=== PATIENT | female | born 1980 | race Caucasian/White ===

== ENCOUNTER 2021-02-05 09:31 | Observation (INO) ==
[~2021-02-05 09:31] MED LIST: CLINDAMYCIN IN 0.9 % SOD CHLOR 900 MG/50 ML BAG IV PRN; GENTAMICIN SULFATE 100 MG in DEXTROSE 5 % IN WATER 100 ML IV SCH
[2021-02-05] MEDS ORDERED: LIDOCAINE HCL 20 ML VIAL ONE (10:14)
[2021-02-05] MEDS ORDERED: KETOROLAC TROMETHAMINE 30 MG/ML VIAL ONE (10:15)
[2021-02-05] MEDS ORDERED: fentaNYL CITRATE/PF 50 MCG/ML AMPUL ONE (10:15)
[2021-02-05] MEDS ORDERED: PROPOFOL VIAL IV ONE (10:15)
[2021-02-05] MEDS ORDERED: DEXAMETHASONE SODIUM PHOSPHATE 10 MG/ML VIAL ONE (10:15)
[2021-02-05] MEDS ORDERED: GLYCOPYRROLATE 0.2 MG/ML VIAL ONE (10:15)
[2021-02-05] MEDS ORDERED: ONDANSETRON HCL/PF 2 MG/ML VIAL ONE (10:15)
[2021-02-05] MEDS ORDERED: ROCURONIUM BROMIDE 10 MG/ML VIAL ONE ×2 (10:15→14:04)
[2021-02-05] MEDS ORDERED: NEOSTIGMINE METHYLSULFATE 1 MG/ML VIAL ONE (10:15)
[2021-02-05] MEDS: RINGER'S SOLUTION,LACTATED 1,000 ML IV PRN ×4 (10:20→16:30)
[2021-02-05] MEDS ORDERED: SCOPOLAMINE HYDROBROMIDE 1.5 MG PATC TD ONE ×2 (10:29→10:30)
--- NOTE | 2021-02-05 10:30 | ANES ---
Anesthesia Pre Procedure Eval Vitals/Labs: Last Vital Signs Temp 36.6 C 02/05/21 09:57 Pulse 93 02/05/21 09:57 Resp 16 02/05/21 09:57 BP 160/95 H 02/05/21 09:57 Pulse Ox 97 02/05/21 09:57 HOME MEDICATIONS norethindrone acetate 1.5 mg-ethinyl estradiol 30 mcg tablet 1 tab PO DAILY #21 tab 09/09/20 [Last Taken Unknown] sertraline 50 mg tablet 50 mg PO DAILY 09/09/20 [Last Taken Unknown] multivitamin 1 tab PO DAILY 12/14/20 [Last Taken Unknown] hydrocodone 5 mg-acetaminophen 325 mg tablet 1 tab PO Q4H PRN #12 tab MDD 4 01/11/21 [Last Taken Unknown] Allergies/Adverse Reactions: Allergies Allergy/AdvReac Type Severity Reaction Status Date / Time Penicillins Allergy Anaphylaxis Verified 02/05/21 09:59 bee pollen AdvReac swelling Verified 02/05/21 09:59 - Planned Procedure Planned Procedure: TLH, Nate Salpingectomy, cystoscopy Medication List Reviewed:: Yes Allergies Verified: Yes Medical History (Last Reviewed 02/05/21 @ 10:29 by Romain Olsen CRNA) Depression Surgical History (Last Reviewed 02/05/21 @ 10:29 by Romain Olsen CRNA) Hx laparoscopic cholecystectomy Onset Date: ~2013 Family History (Last Reviewed 02/05/21 @ 10:29 by Romain Olsen CRNA) Mother Diabetes CVA (cerebral vascular accident) Myocardial infarction Cancer uterine cancer Sister Alive and well Father , unknown No problems noted. - Family Anesthesia History Family History:: no untoward family reactions to anesthesia - Airway/Neck/Teeth Within Normal Limits:: Yes Teeth Condition: intact Neck Exam: full range of motion Mallampatti Score: 2 Thyromental (T-M) distance: > 6 cm Mandibulo Hyoid distance: > 3 cm - Respiratory Respiratory Physical: lungs clear Smoking Status: Never smoker Sleep Apnea currently treated: No Sleep Apnea by current assessment: No - Cardiovascular Tolerate Activity: Good Heart Sounds: S1 & S2, Regular - Gastrointestinal NPO since: MN - Anesthesia Assessment and Plan ASA Class: PS, II Anesthesia Type Plan: General ET Planned difficult intubation/equipment available: No
[2021-02-05] MEDS ORDERED: metroNIDAZOLE/SODIUM CHLORIDE 500 MG/100 ML BAG IV ONE (14:18)
[2021-02-05] MEDS ORDERED: LEVOFLOXACIN IN DEXTROSE 5 % 750 MG/150 ML BAG IV ONE (14:52)
[2021-02-05] MEDS ORDERED: BACITRACIN 50,000 UNITS VIAL ONE (15:31)
[2021-02-05] MEDS ORDERED: BACITRACIN 50,000 UNITS VIAL IR ONE (15:34)
[2021-02-05 16:11] LABS: Hematocrit 32.6 % (37.0-47.0); Hemoglobin 10.8 gm/dL (12.5-16.0)
--- NOTE | 2021-02-05 17:49 | ANES ---
Post Anesthesia Discharge - Transfer of Care Transfer of Care handoff given to nurse: Yes - Discharge from PACU Discharge from PACU when meets criteria: Yes
--- NOTE | 2021-02-05 17:53 | ANES ---
Post Anesthesia Assessment - Vital Signs Vitals: Last Vital Signs Temp 37.1 C 02/05/21 17:25 Pulse 85 02/05/21 17:50 Resp 18 02/05/21 17:50 BP 126/73 02/05/21 17:50 Pulse Ox 97 02/05/21 17:50 Airway Patency: Normal - Mental Status Level Of Consciousness: Drowsy - Pain Level Pain Score: 5 - N/V Assessment Nausea/Vomiting Presence: None Dehydration:: No
[2021-02-05] MEDS ORDERED: MORPHINE SULFATE 2 MG/ML DISP.SYRIN IV PRN ×2 (18:00→18:44)
[2021-02-05] MEDS ORDERED: RINGER'S SOLUTION,LACTATED 1,000 ML IV PRN ×2 (18:01→18:44)
[2021-02-05] MEDS ORDERED: MORPHINE SULFATE 4 MG/ML SYRG ONE (18:04)
--- NOTE | 2021-02-05 18:24 | OR ---
Operative Report - Dictated Report Narrative: Preoperative diagnosis: AUB, dysmenorrhea, leimyoma Postoperative diagnosis: same, rectal injury Procedure: TLH, bilateral salpingectomies. Conversion to laparotomy with closure of the vaginal cuff Surgeon: Dr. Zarate and Dr. Sánchez Anesthesia: PEYMAN Anesthesiologist: Tien Olsen CRNA Description of the procedure: The patient was taken to the operating room where general anesthesia was induced. She was then prepped and draped in the lithotomy position in the standard surgical fashion. Attention was then turned to the vagina. A sterile speculum was placed in the patient's vagina. The anterior lip of the cervix was grasped with a single toothed tenaculum. A manipulator was placed using a blue tip and a small cup. Attention was then turned to the abdomen. A 5 mm skin incision was made superior to the umbilicus. Two additional ports were placed in the RLQ and LLQ respectively. An additional port was placed in the RLQ for additional traction. The left round ligament was identified and transected with the Ligasure device. The incision was carried through the anterior and posterior leaves of the broad ligament. The left tube was cut along the mesosalpinx. The utero-ovarian ligament was transected. A bladder flap was created anteriorly. The uterine art eries were taken down. The same procedure was repeated on the left. A colpotomy was begun anteriorly and carried circumferentially. Attention was then turned to the vagina. I began vaginal morcellation of the uterus. The patient's vagina was very deep and I lost the portion of the uterus that had not been resected yet. Attempts at getting a hold of the uterus led to a rectal laceration. I realized so because there was stool in the field. At this point I abandoned the vaginal morcellation and visualized the rectal injury laparoscopically. Dr. Zarate was called for assistance. A decision was made to proceed with laparotomy via a Pfannestiel incision. The incision was carried through the subcutaneous tissue. The fascia was incised in the midline. The fascia was grasped with Bhakti clamps both superiorly and inferiorly. The fascia was dissected off the underlying rectus muscles. The rectus muscles were in the midline. The peritoneum was entered sharply. A bookwalter retractor was placed. A 4 cm rectal laceration was visualized, transmural, and extending to the peritoneal reflection. The vaginal cuff was closed with interrupted 0-vicryl sutures. Please refer to Dr. Zarate's operative report for additional details since her took over at this point. EBL: 150 mL Complications: rectal injury
--- NOTE | 2021-02-05 18:29 | PN ---
Progess Note - Interim Date: 02/05/21 Time: 18:24 Narrative: 02/05/21 18:24 The surgical complication was explained in detail to the patient's mother as well as the patient. Arrangements for transfer to the [place] were made.
--- NOTE | 2021-02-05 18:33 | DS ---
Transfer Discharge Summary - Diagnosis(s)/Problems (1) S/P hysterectomy Problem: Acute (2) Status post bilateral salpingectomy Problem: Acute (3) Rectal injury Problem: Acute - Course Description of Stay: Pt admitted for surgery. An intraoperative complication occurred (a rectal injury). Dr. Zarate was called for assistance. Dr. Zarate did a temporary repair. The patient was transferred to the [facility] for definitive repair. Consultation Done:: General Surgery, intraoperative consultation Procedures Performed: see notes below Procedures: TLH, salpingectomies. Laparotomy, closure of vaginal cuff - Results and Findings Results and Findings: Laboratory Results - last 24 hr 02/05/21 02/05/21 02/05/21 09:40 09:57 16:05 Hgb 10.8 L Hct 32.6 L Creatinine 0.73 Urine HCG, Qual Negative Blood Type Antibody Screen 02/05/21 16:05 Hgb Hct Creatinine Urine HCG, Qual Blood Type A Positive Antibody Screen Negative - Medications Medications: Active Medications Gentamicin Sulfate 100 mg/ (Dextrose/Water) 102.5 mls @ 100 mls/hr IV Q8H ARNAUD; Protocol Stop: 03/07/21 06:01 Last Infusion: 02/05/21 12:00 Dose: Infused Documented by: Clindamycin/Sodium Chloride (Cleocin) 900 mg in 50 mls @ 50 mls/hr IV ONCE PRN; Protocol PRN Reason: SURGERY Stop: 02/05/21 23:59 Last Infusion: 02/05/21 11:00 Dose: Infused Documented by: Lactated Ringer's (Lactated Ringers) 1,000 mls @ 150 mls/hr IV .Q6H40M PRN PRN Reason: HYDRATION Stop: 02/05/21 23:59 Last Admin: 02/05/21 16:30 Dose: 150 mls/hr Documented by: Morphine Sulfate (Morphine Sulfate 2 Mg/Ml Disp.Syrin) 2 mg IV Q1H PRN PRN Reason: pain Stop: 03/07/21 18:01 Last Admin: 02/05/21 18:07 Dose: 2 mg Documented by: Discontinued Medications Bacitracin (Bacitracin 50,000 Units Vial) 50,000 units IR ONCE ONE Stop: 02/05/21 15:35 Last Admin: 02/05/21 15:34 Dose: 50,000 units Documented by: Metronidazole (Flagyl) 500 mg in 100 mls @ 100 mls/hr IV ONCE ONE; Protocol Stop: 02/05/21 15:17 Last Admin: 02/05/21 14:30 Dose: 100 mls/hr Documented by: Levofloxacin/Dextrose (Levaquin) 750 mg in 150 mls @ 100 mls/hr IV ONCE ONE; Protocol Stop: 02/05/21 16:21 Last Admin: 02/05/21 15:00 Dose: 100 mls/hr Documented by: Scopolamine (Scopolamine Hydrobromide 1.5 Mg Patc) 1.5 mg TD ONCE ONE Stop: 02/05/21 10:31 Last Admin: 02/05/21 10:31 Dose: 1.5 mg Documented by: - Disposition Disposition: Home self-care Condition: Fair Discharge Date: 02/05/21 Discharge Time: 18:31
[2021-02-05] MEDS ORDERED: IBUPROFEN 800 MG TABLET PO PRN (18:44)
[2021-02-05] MEDS ORDERED: HYDROcodone/ACETAMINOPHEN 1 EACH TABLET PO PRN (18:44)
[2021-02-05] MEDS ORDERED: MORPHINE SULFATE 10 MG/ML SYRG IV STA (18:45)
[2021-02-05 22:44] VITALS: BP 141/77
[2021-02-05] MEDS ORDERED: metroNIDAZOLE/SODIUM CHLORIDE 500 MG/100 ML BAG IV SCH (23:00)
[2021-02-06] MEDS ORDERED: SERTRALINE HCL 50 MG TABLET PO SCH (09:00)
--- NOTE | 2021-02-06 09:20 | OR ---
Operative Report - Dictated Report Narrative: OPERATIVE REPORT DATE OF OPERATION: 03/07/2021 PREOPERATIVE DIAGNOSIS: Intraoperative sigmoid/rectal injury during laparoscopically assisted total vaginal hysterectomy POSTOPERATIVE DIAGNOSIS: Same OPERATION: Temporary repair of anterior sigmoid/rectal laceration SURGEON: Esa Zarate MD ANESTHESIA: General endotracheal Tien Olsen CRNA INDICATIONS FOR PROCEDURE: The patient is a 40-year-old female who was brought by Dr. Sánchez for an elective laparoscopically assisted total vaginal hysterectomy. During the procedure she had concern for a bowel injury, called me, and asked for my assistance. FINDINGS: Approximately 4 cm anterior full-thickness bowel laceration involving the colon from above the peritoneal reflection to a point below the peritoneal reflection. NARRATIVE OF PROCEDURE: Please refer to Dr. Sánchez's operative report for the first portion of the operation. I initially entered the operating room during the end of the laparoscopic portion of the procedure. Dr. Sánchez demonstrated the bowel injury. My recommendation was for an open visualization of the injury to decide upon management. While preparations were being made for laparotomy, I discussed the situation with the patient's mother. I used a diagram of the colon to demonstrate what could be seen of the injury thus far. I explained that we would need to examine the area directly so that management could be decided upon. I explained that management might involve a primary repair or a colostomy. The patient's mother stated that the patient would not want a colostomy. After the abdomen was opened by Dr. Sánchez. The uterus was removed. A Bookwalter self-retaining retractor was placed and the pelvis carefully inspected. 2 small pieces of solid stool adjacent to the laceration were removed with forceps. There was no other gross fecal contamination. The pelvis was irrigated with bacitracin containing saline and suctioned clean. Dr. Sánchez closed the vaginal cuff transversely with interrupted Vicryl sutures. At this juncture, Dr. Sánchez was called for a delivery and left the operating room. I completed the case and supervised transportation of the patient to the recovery room in her absence. The patient had received gentamicin and clindamycin earlier. I ordered additional IV Levaquin 750 mg and Flagyl 500 mg be given. Even with the vaginal cuff and anterior peritoneal reflection retracted anteriorly, the distal end of the bowel laceration could not be definitively identified. Decision was made to close the bowel temporarily and refer the patient to a tertiary care center where more options for management are available. The bowel was closed with running full-thickness Vicryl sutures. This repair extended down to the furthest visible portion of the laceration just below and including the peritoneal reflection. The repair appeared gas and liquid tight. The pelvis was irrigated with 2 L of bacitracin containing saline, suctioned clean, and inspected for hemostasis which appeared complete. After receiving a correct sponge needle instrument count attention was turned to closing the abdomen. The greater omentum was pulled inferiorly and positioned in the pelvis. The peritoneum was approximated with a running suture of a ntibiotic-containing Vicryl. Fascia was closed with a running suture of 0 PDS. Subcutaneous tissues were irrigated with bacitracin containing saline. A large round Abdullahi-Simms drain was placed in the subcutaneous tissue and brought out through a stab wound in the right lower quadrant. It was secured to the skin with a silk suture. The skin of the incision was closed over the drain with eliecer. The Abdullahi-Simms drain was connected to its own suction container. The patient's anterior abdomen was then cleaned with saline. Dressings of mupirocin ointment and large Band-Aids were placed on the port sites. The incision was dressed with folded 4 x 4's and Medipore tape. The operative procedure was terminated at this point. The patient tolerated the anesthetic and procedure well. Her arms and legs were checked periodically and repeatedly throughout the procedure to ensure adequate padding to avoid pressure. There was no significant measurable blood loss during the intra-abdominal portion of the operation. The patient was transferred to the recovery room awake, extubated, and in stable condition. The position of the nasogastric tube was confirmed by chest x-ray in the recovery room. This also demonstrated a left upper lobe infiltrate. Once the patient was established in the recovery room, I discussed the situation with the patient's mother. I referred to the earlier diagram. I explained the laceration and the temporary repair, and my recommendation for transfer to the [facility]. After an interactive discussion she voiced her understanding. I encouraged her to write any additional questions down as she thought of them. She was given my cell phone number and encouraged to call for questions or concerns. Reviewed and electronically signed
== END 2021-02-05 18:58 | disposition short-term general hospital (02) ==
LOC: SUR 09:31 → INTOOBSV 18:44 → MS 18:44
PROVIDERS: ADMIT Obstetrics & Gynecology; ATTEND Obstetrics & Gynecology
DX: N93.9 Abnormal uterine and vaginal bleeding, unspecified; D25.9 Leiomyoma of uterus, unspecified; K91.71 Accidental puncture and laceration of a digestive system organ or structure during a digestive system procedure